=== PATIENT | female | born 1980 | race Caucasian/White ===

== ENCOUNTER → 2022-02-08 | Outpatient (CLI) | payer BC ==
--- NOTE | 2022-02-10 13:53 | MM ---
Reason for Exam: Screening (asymptomatic). Baseline mammogram. Patient History: Menarche at age 13. Patient has no children. Maternal aunt had breast cancer. Risk Values: Nely 5 year model risk: 0.6%. NCI Lifetime model risk: 11.1%. Prior Study Comparison: Patient's first Mammogram. Tissue Density: The breast tissue is heterogeneously dense. This may lower the sensitivity of mammography. Findings: Analyzed By CAD. There is a 15mm round, circumscribed mass in the left breast, deep inferior subareolar position 1-2cm from the nipple. Overall Assessment: Incomplete: need additional imaging evaluation, BI-RAD 0 Management: Diagnostic Breast Ultrasound of the left breast. [facility] will attempt to contact patient to return for supplemental views. A clinical breast exam by your physician is recommended on an annual basis and results should be correlated with mammographic findings. Electronically signed and approved by: Lucio Garcia M.D.
== END | disposition home or self-care (01) ==
LOC: RADMAMWWP 20:24
PROVIDERS: ATTEND Obstetrics & Gynecology
DX: Z12.31 Encounter for screening mammogram for malignant neoplasm of breast (principal); Z80.3 Family history of malignant neoplasm of breast
CPT/HCPCS: 77063; 77067

== ENCOUNTER → 2022-02-16 | Outpatient (CLI) | payer BC ==
--- NOTE | 2022-02-16 08:22 | USB ---
Reason for Exam: Additional evaluation requested from abnormal screening. Patient History: Menarche at age 13. Patient has no children. Maternal aunt had breast cancer. Risk Values: Nely 5 year model risk: 0.6%. NCI Lifetime model risk: 11.1%. Technique: Method: Targeted. Prior Study Comparison: 02/08/2022 Bilateral MG 3D screening mammo w/cad, [facility]. Findings: The periareolar of the left breast, the axilla of the left breast and the retroareolar of the left breast were scanned. The left breast posterior to the nipple demonstrates a 1.2 x 0.6 cm mass which is hypoechoic with circumscribed borders, parallel and demonstrate no posterior acoustic features. No definitive internal calcifications identified. No internal vascularity definitively visualized. Possible duct extends to this area. Overall Assessment: Suspicious, BI-RAD 4 Management: Ultrasound Core Biopsy of the left breast. Findings may represent a dilated duct with internal debris and/or papilloma however other etiologies remain possible. A clinical breast exam by your physician is recommended on an annual basis and results should be correlated with mammographic findings. Electronically signed and approved by: Bryan Weaver DO
== END | disposition home or self-care (01) ==
LOC: RADUSWWP 07:34
PROVIDERS: ATTEND Obstetrics & Gynecology
DX: R92.8 Other abnormal and inconclusive findings on diagnostic imaging of breast (principal); Z80.3 Family history of malignant neoplasm of breast

== ENCOUNTER → 2022-03-09 | Day surgery (SDC) | payer BC ==
--- NOTE | 2022-03-09 10:32 | USB ---
Risk Values: Nely 5 year model risk: 0.6%. NCI Lifetime model risk: 11.1%. Prior Study Comparison: 02/08/2022 Bilateral MG 3D screening mammo w/cad, [facility]. 02/16/2022 Left US breast workup limited LT, [facility]. Pathology Description: Location: retroareolar. Marker Left Behind. Cores: 4 Gauge: 18 Pathology Results: Results pending. Electronically signed and approved by: Bryan Weaver DO
--- NOTE | 2022-03-11 14:35 | MM ---
Reason for Exam: Post Procedure Mammogram. Last screening mammogram was performed less than 1 month ago. Patient History: Menarche at age 13. Patient has no children. Maternal aunt had breast cancer. Risk Values: Nely 5 year model risk: 0.6%. NCI Lifetime model risk: 11.1%. Tissue Density: Left: The breast tissue is heterogeneously dense. This may lower the sensitivity of mammography. Overall Assessment: Benign, BI-RAD 2 Management: Diagnostic Mammogram of the left breast in 6 months. Electronically signed and approved by: Bryan Weaver DO
== END ==
LOC: RADUSWWP 07:25
PROVIDERS: ATTEND Surgery
DX: R92.8 Other abnormal and inconclusive findings on diagnostic imaging of breast (principal); N60.22 Fibroadenosis of left breast; N60.12 Diffuse cystic mastopathy of left breast
CPT/HCPCS: 88305; 77065; 19083; A4648

== ENCOUNTER → 2022-09-26 | Outpatient (CLI) | payer BC ==
--- NOTE | 2022-09-26 08:48 | MM ---
Reason for Exam: Follow-up at short interval from prior study. Last screening mammogram was performed 7 month(s) ago. Patient History: Menarche at age 13. Patient has no children. 03/09/2022, Benign US breast needle core LT on the left side. Maternal aunt had breast cancer. Last menstrual period: 08/26/2022 Risk Values: Nely 5 year model risk: 1.1%. NCI Lifetime model risk: 13.4%. Prior Study Comparison: 02/08/2022 Bilateral MG 3D screening mammo w/cad, [facility]. 03/09/2022 Left MG diagnostic mammo LT wo CAD., [facility]. Tissue Density: Left: The breast tissue is heterogeneously dense. This may lower the sensitivity of mammography. Findings: Analyzed By CAD. Stable 1.4 cm oval circumscribed mass with biopsy clip. No new mass or suspicious group of microcalcifications left breast. Overall Assessment: Benign, BI-RAD 2 Management: Screening Mammogram of both breasts in 5 months. Back on schedule. Results were given to the patient verbally at the time of exam. Electronically signed and approved by: Lucio Garcia M.D.
== END | disposition home or self-care (01) ==
LOC: RADMAMWWP 08:21
PROVIDERS: ATTEND Surgery
DX: R92.8 Other abnormal and inconclusive findings on diagnostic imaging of breast (principal); Z80.3 Family history of malignant neoplasm of breast
CPT/HCPCS: 77061; 77065

== ENCOUNTER → 2024-03-05 | Outpatient (CLI) | payer BC ==
--- NOTE | 2024-03-06 10:19 | MM ---
Reason for Exam: Screening (asymptomatic). Last mammogram was performed 1 year(s) and 1 month(s) ago. Patient History: Menarche at age 13. Patient has no children. 03/09/2022, Benign US breast needle core LT on the left side. Maternal aunt had breast cancer. Paternal aunt had breast cancer. Risk Values: Nely 5 year model risk: 1.2%. NCI Lifetime model risk: 13.2%. Prior Study Comparison: 03/09/2022 Left MG diagnostic mammo LT wo CAD., [facility]. 09/26/2022 Left MG 3D diag mammo w/cad LT, [facility]. 02/28/2023 Bilateral MG 3D screening mammo w/cad, [facility]. Tissue Density: The breasts are almost entirely fatty. Findings: Analyzed By CAD. Left breast biopsy clip. Right breast: There is no suspicious group of microcalcifications or new suspicious mass. Left breast: There is no suspicious group of microcalcifications or new suspicious mass. Overall Assessment: Negative, BI-RAD 1 Management: Screening Mammogram of both breasts in [address] [facility] will attempt to contact patient to return for supplemental views and ultrasound if indicated. Patient should continue monthly self-breast exams. A clinical breast exam by your physician is recommended on an annual basis. This exam should not preclude additional follow-up of suspicious palpable abnormalities. Note on Nely scores and lifetime risk: 1. A Nely score greater than 3% is considered moderate risk. If this is the case, consider specialist referral to assess eligibility for a risk reducing agent. 2. If overall lifetime risk for the development of breast cancer is 20% or higher, the patient may qualify for future screening with alternating mammogram and breast MRI. [facility], , 03/06/2024 10:00 AM. Electronically signed and approved by: Bryan Weaver DO
== END | disposition home or self-care (01) ==
LOC: RADMAMWWP 08:05
PROVIDERS: ATTEND Obstetrics & Gynecology
DX: Z12.31 Encounter for screening mammogram for malignant neoplasm of breast
CPT/HCPCS: 77063; 77067

== ENCOUNTER → 2024-04-20 | Outpatient (CLI) | payer BC ==
[2024-04-20 12:55] LABS: Basophils # (A) 0.06 X 10*3/uL (0.00-0.10); Basophils % (A) 0.7 %; Eosinophils # (A) 0.12 X 10*3/uL (0.04-0.35); Eosinophils % (A) 1.3 %; HCT 44.2 % (37.2-46.3); HGB 14.5 g/dL (12.0-15.0); Lymphocytes # (A) 2.39 X 10*3/uL (0.90-5.00); Lymphocytes % (A) 26.6 %; MCH 30.8 pg (27.0-32.0); MCHC 32.8 g/dL (32.0-37.0); MCV 93.8 FL (80.0-97.0); Mean Platelet Volume 12.1 FL (9.5-12.2); Monocytes # (A) 0.58 X 10*3/uL (0.20-1.00); Monocytes % (A) 6.5 %; NRBC Per 100 WBC 0 X 10*3/uL (0.00-0.01); Neutrophils % (A) 64.6 %; Platelet Count 301 X 10*3/uL (140-440); RBC 4.71 X 10*6/uL (4.10-5.20); RDW 12.8 % (11.5-14.5); WBC 8.98 X 10*3/uL (4.50-10.00)
[2024-04-20 13:07] LABS: Blood Urea Nitrogen 13.1 mg/dL (9.0-27.0); Carbon Dioxide 22.8 mmol/L (21.6-31.8); Chloride 104 mmol/L (96-109); Glucose 113 mg/dL (70-110); Potassium 4.5 mmol/L (3.5-5.5); Sodium 139 mmol/L (135-145)
== END | disposition home or self-care (01) ==
LOC: LABPAT 08:20
PROVIDERS: ATTEND Obstetrics & Gynecology
DX: Z01.812 Encounter for preprocedural laboratory examination (principal); D25.9 Leiomyoma of uterus, unspecified
CPT/HCPCS: 80051; 82565; 82947; 84520; 85025; 86850; 86900; 86901; 87086

== ENCOUNTER 2024-04-29 05:41 | Day surgery (SDC) | payer BC ==
[2024-04-29] MEDS ORDERED: droPERidol 5 MG/2 ML VIAL IVP ONE (05:54)
[2024-04-29] MEDS ORDERED: LIDOCAINE 1% (10MG/ML) FOR IV START INTRADERMA PRN (05:54)
[2024-04-29] MEDS: IV FLUID CONTINUATION 1,000 ML IV ONE (06:34)
[2024-04-29] MEDS: LACTATED RINGERS 1,000 ML IV SCH ×2 (06:55→12:49)
[2024-04-29] MEDS ORDERED: HYDROmorphone 0.5 MG/0.5 ML SYRINGE IVP PRN (07:00)
[2024-04-29] MEDS: ONDANSETRON 4 MG/2 ML VIAL IVP ONE (07:03)
[2024-04-29] MEDS: DEXAMETHASONE SOD PHOSPHATE 4 MG/ML 1 ML VIAL IV ONE (07:03)
[2024-04-29] MEDS: MORPHINE SULFATE (PF) 1 MG/ML AMP INTRATHECA ONE (07:12)
[2024-04-29] MEDS: MIDAZOLAM 2 MG/2 ML VIAL IV ONE (07:22)
[2024-04-29] MEDS ORDERED: NEOSTIGMINE 1 MG/ML 10 ML VIAL ONE (07:24)
[2024-04-29] MEDS ORDERED: PROPOFOL 10 MG/ML 20 ML VIAL IV ONE (07:24)
[2024-04-29] MEDS ORDERED: HYDROmorphone (PF) 1 MG/ML ONE (07:24)
[2024-04-29] MEDS ORDERED: ACETAMINOPHEN IV (For NPO) 1,000 MG/100 ML VIAL ONE (07:24)
[2024-04-29] MEDS ORDERED: KETOROLAC 15 MG/ML 1 ML VIAL ONE (07:24)
[2024-04-29] MEDS ORDERED: diphenhydrAMINE 50 MG/ML 1 ML VIAL ONE (07:24)
[2024-04-29] MEDS ORDERED: SUCCINYLCHOLINE CHLORIDE 200 MG/10 ML VIAL IV ONE (07:24)
[2024-04-29] MEDS ORDERED: LIDOCAINE 1% INJ 10MG/ML (20 ML MDV) ONE (07:24)
[2024-04-29] MEDS ORDERED: GLYCOPYRROLATE 0.2 MG/ML 2 ML VIAL ONE (07:24)
[2024-04-29] MEDS ORDERED: MIDAZOLAM 2 MG/2 ML VIAL ONE (07:24)
[2024-04-29] MEDS ORDERED: fentaNYL (PF) 50 MCG/ML 2 ML AMP ONE (07:24)
[2024-04-29] MEDS ORDERED: ROCURONIUM 10 MG/ML (5 ML VIAL) IV ONE (07:24)
--- NOTE | 2024-04-29 07:33 | P.ANPRN ---
Procedure Note - Anesthesia - Epidural/Spinal Spinal Time Out Performed: Yes Date of Procedure: 04/29/24 Procedure Start Time: 07:12 Procedure Stop Time: 07:17 Location of Patient: PreOp Indication: Acute Post-Operative Pain, Analgesia, Requested by Surgeon Sedation Type: Sedate with meaningful contact maintained Preparation: Sterile Prep Position: Sitting Catheter: None Needle Guage: 25 Narrative: Duramorph 0.3mg intrathecally. AttemptX1 Blood Aspirated: No Pain Paresthesia on Injection Noted: No Events: Uneventful and Well Tolerated
[2024-04-29] MEDS: BUPIVACAINE (PF) 0.25% 30 ML VIAL SQ ONE ×2 (08:06→10:05)
[2024-04-29] MEDS: LACTATED RINGERS 1,000 ML IV ONE (08:08)
[2024-04-29] MEDS ORDERED: KETOROLAC 15 MG/ML 1 ML VIAL IVP PRN (10:09)
[2024-04-29] MEDS ORDERED: METOCLOPRAMIDE 5 MG/ML 2 ML VIAL IVP PRN (10:09)
[2024-04-29] MEDS ORDERED: SIMETHICONE 80 MG CHEWABLE PO PRN (10:09)
[2024-04-29] MEDS ORDERED: ONDANSETRON 4 MG/2 ML VIAL IVP PRN (10:09)
--- NOTE | 2024-04-29 10:25 | P.OP ---
Date of Procedure: 04/29/24 Preoperative Diagnosis: #1. Symptomatic enlarged fibroid uterus Postoperative Diagnosis: Same Procedure(s) Performed: #1. Da Erlin robotically assisted laparoscopic hysterectomy with bilateral salpingectomy #2. Cystotomy repair (Rahbar) #3. Diagnostic cystoscopy Anesthesia: TIM Surgeon: Earnest Bee Engineering Group Leader #1: [place] Lo Estimated Blood Loss (ml): 50 IV fluids (ml): 1,200 Urine output (ml): 200 Pathology: other (Uterus and bilateral fallopian tubes) Condition: stable Disposition: PACU Operative Findings: Preoperative pelvic examination confirmed an enlarged 12 to 14-week irregular uterus. Intraoperatively the uterus was noted to be quite irregular with multiple fibroids of varying sizes distorting the anatomy of the uterus as well as its vascular flow. Secondary to the rotation of the uterus the bladder was ultimately noted to be significantly high on the patient's left side which unfortunately led to an incidental cystotomy during the case which was subsequently repaired. The ovaries were entirely normal bilaterally. Using the cystoscope, the dome of the bladder was noted to have an intact repair which was also tested following repair intraoperatively by backfilling the bladder with sterile water and no leaking noted. The bilateral ureters were noted to be peristalsing following the procedure. Description of Procedure: The patient was prepped and draped in the usual fashion after general tracheal anesthesia was administered by the anesthesiologist. A speculum was placed and the anterior lip of the cervix grasped with a single-tooth tenaculum. Uterus sounded to approximately 14 cm. Serial dilation was carried out to admit the Vcare uterine manipulator which was affixed to the cervix in standard fashion. A Yi catheter was placed at which time clear deniz urine was noted. Attention was turned to the abdomen where a site was selected approximately 3 cm above the umbilicus in the midline where an 8 mm incision was made in the transverse plane allowing insertion of an 8 mm optical da Erlin port under direct visualization without difficulty. A pneumoperitoneum was infused and 25 degrees of Trendelenburg positioning employed. A site was selected in the right lower quadrant approximately 4 to 5 cm below the optical port and 10 to 12 cm lateral to the umbilicus where an 8 mm incision was made in the transverse plane along insertion of an 8 mm da Erlin port under direct visualization without difficulty. A mirroring incision and port were placed in the left lower quadrant. A site was selected above the optical port and bisecting the distance between the left lower quadrant port and the optical port in the left upper quadrant where a 10 mm incision was made in the transverse plane along insertion of the 10 mm certified surgical tech/first assistant port under direct visualization without difficulty. The robot was docked to the patient in the left arm loaded with a [place] bipolar cautery forceps while the right arm was loaded with a monopolar cautery scissors. The anatomy was noted to be difficult as above. The left fallopian tube was elevated and removed from the underlying tissues with cautery and the monopolar cautery scissors. It was then divided from the patient as it was otherwise in the way. The utero-ovarian ligament and round ligament were thoroughly cauterized with the [place] bipolar cautery forceps and then cut with the monopolar scissors. Once through the round ligament, the bladder peritoneum was started though the anatomy was somewhat distorted secondary to a large left fundal fibroid. In the process of creating the bladder flap and dissecting down along the blood vessels of the uterus, there was noted to be a roughly half centimeter to 1 cm opening which after exploration was noted to be into the bladder. Consultation with urology was called at which time they recommended we proceed with the remainder of the hysterectomy and he would return to repair the cystotomy post hysterectomy. The blood vessels were further secured on the left side. Rotation of the uterus allowed the right fallopian tube to be removed from the patient in similar fashion to the left. The utero-ovarian ligament and round ligament were then cauterized and cut as well. The uterine vasculature was skeletonized and ultimately cauterized with the [place] bipolar cautery forceps then cut. The bladder peritoneum was developed from the side to the other side at which time the anatomy became more apparent on the left side. The bladder was reflected distally across the entire anterior portion of the uterus and the vaginal cup was clearly visible. Attention was returned to the left side where the bladder peritoneum was further developed and the bladder swept distally. The incidental cystotomy appeared to be in the dome of the bladder on the slightly posterior side but significantly away from the ureteral insertion. Once the vaginal cup was clear throughout. The vagina was packed with a laparotomy sponge and the cervix divided from the vagina along the margin of the vaginal cup sharply with the monopolar and bipolar cautery scissors. The uterus was removed circumferentially until it was free. After some manipulation, the very large uterus was ultimately able to be delivered through the vagina intact. The vagina was then packed with a sponge again and the pneumoperitoneum reestablished. Hemostasis appeared to be excellent. The vaginal cuff was closed with a running stitch of 0 V-Loc from margin to margin with 2 stitches trace backward at the left margin. At the time of starting closure of the vaginal cuff, urology was called and presented shortly after closure of the cuff. He then proceeded to close the cystotomy in 2 layers, both being a running stitch of 3-0 STRATAFIX with the second layer imbricating the previous layer. The repair was tested for water tightness by filling the bladder with approximately 150 mL of sterile water and there was no extravasation of fluid from the laparoscopic side. Urology requested that a DAVIN drain remain in place and it was passed through the left lower quadrant da Erlin port and laid into the cul-de-sac. The robot was then undocked and the ports removed. I then remove the Yi catheter and placed a diagnostic cystoscope, distended the bladder with sterile water. The repair was noted to be at the dome of the bladder on the left side and appeared to be intact. The bilateral ureteral Helex were noted and were both seen to peristalsis. All instrumentation was then removed and the Yi catheter was replaced. The abdominal incisions were closed with interrupted subcuticular stitches of 4-0 Vicryl followed by half-inch Steri-Strips placed with Mastisol. The 4 incisions were then infused with a total of 10 mL of quarter percent Marcaine without epinephrine, equally divided between the 4 ports. All sponge, instrument, and needle counts were correct. Estimated blood loss for the case was approximately 50 mL or less. The only complication was the incidental cystotomy repaired intraoperatively by urology. The patient tolerated the procedure well and proceeded to the recovery room in stable condition.
[2024-04-29] MEDS ORDERED: NALOXONE 0.4 MG/ML 1 ML VIAL IV PRN (12:07)
[2024-04-29] MEDS: diphenhydrAMINE 50 MG/ML 1 ML VIAL IVP PRN (12:45)
--- NOTE | 2024-04-29 15:52 | P.GSCN ---
History of Present Illness Consult date: 04/29/24 Reason for Consult: Bladder injury History of present illness: This is a 44-year-old female that is undergoing a robotic hysterectomy with Dr. Bee for a fibroid, intraoperatively was noted there was a bladder injury subsequently urology was consulted. On review of chart no previous known urological history. Of note patient was undergoing surgery at time of IntraOp evaluation thus a complete history could not be obtained Past Medical History Past Medical History: No Reported History Additional Past Medical History / Comment(s): UTERINE FIBROIDS History of Any Multi-Drug Resistant Organisms: None Reported Past Surgical History: Orthopedic Surgery Additional Past Surgical History / Comment(s): left wrist surgery as a child Past Anesthesia/Blood Transfusion Reactions: No Reported Reaction Smoking Status: Current every day smoker - Past Family History Father Family Medical History: Myocardial Infarction ([place]) Mother Family Medical History: Hypertension Medications and Allergies Home Medications Medication Instructions Recorded Confirmed Type norethindrone-e.estradioL-iron 1 each PO DAILY 04/22/24 04/22/24 History [Junel Fe 1.5 mg-30 Mcg Tablet] Allergies Allergy/AdvReac Type Severity Reaction Status Date / Time No Known Allergies Allergy Verified 04/22/24 14:23 Surgical - Exam Vital Signs Temp Pulse Resp BP Pulse Ox 98.0 F 78 18 133/76 98 04/29/24 06:33 04/29/24 06:33 04/29/24 06:33 04/29/24 06:33 04/29/24 06:33 Assessment and Plan Assessment: 44-year-old female with intraoperative bladder injury urology was consulted for. -Defect was repaired robotically, please see op note for details
[2024-04-30] MEDS: IBUPROFEN 600 MG TAB PO PRN (00:02)
[2024-04-30] MEDS: SENNOSIDES-DOCUSATE SODIUM 1 EACH TAB PO SCH (01:56)
[2024-04-30] MEDS: ACETAMINOPHEN TAB 325 MG TAB PO PRN (04:38)
[2024-04-30 04:47] VITALS: TEMP 98.7
[2024-04-30 05:55] LABS: Basophils % (A) 0 %; Eosinophils # (A) 0.2 k/uL (0-0.7); Eosinophils % (A) 1 %; HCT 37.9 % (34.0-46.0); HGB 12.3 gm/dL (11.4-16.0); Lymphocytes # (A) 3.4 k/uL (1.0-4.8); Lymphocytes % (A) 26 %; MCH 31.1 pg (25.0-35.0); MCHC 32.6 g/dL (31.0-37.0); MCV 95.3 fL (80.0-100.0); Mean Platelet Volume 9.3; Monocytes # (A) 0.6 k/uL (0-1.0); Monocytes % (A) 5 %; Neutrophils % (A) 67 %; Platelet Count 190 k/uL (150-450); RBC 3.98 m/uL (3.80-5.40); RDW 12.8 % (11.5-15.5); WBC 13.4 k/uL (3.8-10.6)
--- NOTE | 2024-04-30 07:24 | P.PN ---
Progress Note - Text Progress Note Date: 04/30/24 (574) Anesthesia Postop day 1 Subjective: Status Post vaginal hysterectomy with Duramorph. Patient seen and examined. Doing well without complaint. VAS 2 out of 10. No nausea or vomiting. Mild pruritus tolerable.. Denies fever. Gross lower extremity strength intact. Without apparent anesthetic complications. Objective: Vital signs reviewed Heart: Regular Rate Lungs: Good chest excursion Abdomen: Appears nondistended Assessment: Status post vaginal hysterectomy with Duramorph postop day 1 Plan: 1. Continue current care with your medical management. Anticipated end to the duration of the Duramorph around surgery time today. You may see increased pain needs around this time. 2. This note was dictated using [employer] software. Please be advised there is a potential for misspellings or errors in portfolio administrator.
--- NOTE | 2024-04-30 08:45 | P.PN ---
Progress Note - Text Progress Note Date: 04/30/24 Underwent bladder repair yesterday, minimal output from the DAVIN this morning. Urine is clear. -DAVIN drain can be removed today -From urology standpoint she can be discharged home with a Yi catheter, she is set up for a cystogram on May 06
--- NOTE | 2024-04-30 08:50 | P.DS ---
Providers Expected date of discharge: 04/30/24 Attending physician: Earnest Bee Consults: 04/29/24 10:25 Consult Physician Routine Consulting Provider: Ravi Fitzgerald Consult Reason/Comments: Intraoperative cystotomy repair Do you want consulting provider notified?: Already Contacted Primary care physician: Stated None - Discharge Diagnosis(es) (1) Fibroid uterus Current Visit: Yes Status: Acute Hospital Course: The patient is a 44-year-old woman who has had a known large and irregular fibroid uterus over the last number of years and has finally come to the point where it has become symptomatic enough to request removal. We discussed options for removal and have opted to proceed with da Erlin robotic hysterectomy. She was taken to the operating room where she underwent da Erlin robotically assisted laparoscopic hysterectomy with bilateral salpingectomy. Intraoperatively the uterus was noted to be extraordinarily irregular distorting the anatomy and, in the process of securing the left uterine vessels and creating the bladder flap, there was an incidental cystotomy. Urology was consulted and presented after completion of the hysterectomy to perform robotic repair of cystotomy which was undertaken in an uncomplicated fashion. A DAVIN drain was left in place per urology. At the end of the procedure, diagnostic cystoscopy demonstrated bilateral ureteral jets and the cystotomy repair was intact. The patient's postoperative course was unremarkable with vital signs remaining stable and her temperature was afebrile throughout. She was tolerating regular diet by the evening of day of surgery. She was deemed stable for discharge on postoperative day #1. The DAVIN drain was removed without difficulty and discarded. She was to follow-up with urology in 1 week for retrograde cystogram and removal of Yi catheter assuming no leak was noted. She was to follow-up with me at 2 weeks if necessary but primarily at 8 weeks routinely. Discharge instructions included calling for any significantly increased fever, abdominal pain, GI or bladder concerns, incisional complaints, or anything else that concerned her. She was additionally instructed to have nothing in the vagina for at least 8 weeks time to include intercourse. She understood her instructions and agrees to follow-up as noted above. Discharge medications included any normal home medications as well as [id number] analgesic pain medications. She was provided a prescription for oxycodone 5 mg, 1-2 p.o. every 6 hours as needed pain, #20 dispensed with no refills. Discharge hemoglobin and hematocrit was 12.3 and 37.9 respectively. Procedures: #1. Da Erlin robotically assisted laparoscopic hysterectomy with bilateral salpingectomy #2. Intraoperative cystotomy repair #3. Diagnostic cystoscopy Patient Condition at Discharge: Stable Plan - Discharge Summary Discharge Rx Participant: No New Discharge Prescriptions: New Cephalexin [Keflex] 500 mg PO Q12HR 10 Days #20 cap No Action norethindrone-e.estradioL-iron [Junel Fe 1.5 mg-30 Mcg Tablet] 1 each PO DAILY Discharge Medication List norethindrone-e.estradioL-iron [Junel Fe 1.5 mg-30 Mcg Tablet] 1 each PO DAILY 04/22/24 [History] Cephalexin [Keflex] 500 mg PO Q12HR 10 Days #20 cap 04/30/24 [Rx] Follow up Appointment(s)/Referral(s): Ravi Fitzgerald MD [STAFF PHYSICIAN] - 05/06/24 10:00 am Earnest Bee MD [STAFF PHYSICIAN] - 2 Weeks Activity/Diet/Wound Care/Special Instructions: It is normal to have blood in the urine Increase your fluid intake Your follow-up for your x-ray would be at the hospital at 9 AM Discharge Disposition: HOME SELF-CARE
--- NOTE | 2024-04-30 08:52 | P.OP ---
Date of Procedure: 04/29/24 Preoperative Diagnosis: Bladder injury Postoperative Diagnosis: Same Procedure(s) Performed: Robotic cystotomy repair Implants: None Anesthesia: TIM Surgeon: Ravi Fitzgerald Estimated Blood Loss (ml): 5 Pathology: none sent Condition: stable Disposition: PACU Indications for Procedure: This is a 44-year-old female that was undergoing a robotic hysterectomy for a fibroid uterus. Intraoperatively it was noticed was a cystotomy subsequently urology was called for repair of the cystotomy. Operative Findings: 1 cm cystotomy along the left posterior dome, repaired in 2 layers robotically Description of Procedure: After the completion of the hysterectomy, the bladder injury was evaluated, the defect measured approximately 1 cm. I was able to visualize the left ureteral orifice and there was clear urine seen effluxing from it. At this point the bladder mucosa was evaluated and it was viable. The defect was closed in 2 layers using 3-0 V-Loc initial layer was to repair the mucosa and the second layer was to imbricate the detrusor muscle over the mucosal repair. The repair was away from the ureteral orifice. The repair was tested using 150 mL, there was no evidence of any leaks. Of note the repair was away from the vagina and peritoneal fat was in between the repair and the vagina. At this point a DAVIN drain was placed through the left quadrant incision. Cystoscopy was performed by Dr. Bee and I did observe bilateral clear efflux from both ureteral orifice ease, and on cystoscopy there was no evidence of any leak at the site of the repair and the repair was evaluated. At this point an 18 Bulgarian Yi was placed. Patient tolerated procedure well and at this point Dr. Bee completed his portion of the case
[2024-04-30 09:08] VITALS: BP 114/76; PULSE 66; RESP 16
== END 2024-04-30 10:32 | disposition home or self-care (01) ==
LOC: OR 05:41 → 4FBP 10:15 → OR 04-30 10:32
PROVIDERS: ATTEND Obstetrics & Gynecology
DX: D25.1 Intramural leiomyoma of uterus (principal); N72 Inflammatory disease of cervix uteri; N80.03 Adenomyosis of the uterus; N88.8 Other specified noninflammatory disorders of cervix uteri; G89.18 Other acute postprocedural pain; F17.210 Nicotine dependence, cigarettes, uncomplicated; Z98.890 Other specified postprocedural states
CPT/HCPCS: 58571; S2900; 81025; 85025; 88307

== ENCOUNTER → 2024-05-06 | Outpatient (CLI) | payer BC ==
--- NOTE | 2024-05-06 10:03 | FL ---
EXAMINATION TYPE: FL voiding cystourethrogram DATE OF EXAM: 05/06/2024 9:58 AM COMPARISON: 05/06/2024 CLINICAL INDICATION:Female, 44 years old with history of S37.20XA UNSPECIFIED INJURY OF BLADDER; , PH H TECHNIQUE: The study was explained to the patient and history was elicited. Prior to initiation of t he study a escort car driver radiograph of the abdomen and pelvis was obtained. [A urinary bladder catheter was p laced under sterile technique by the department of radiology and 300 ccs of Cystografin were instille d via the urinary catheter under intermittent spot fluoroscopy. Fluoroscopy time 57 seconds. Fluoroscopy images:0 Radiographs images:11 DAP: Not reported mGycm2 FINDINGS: The escort car driver fluoroscopic image of the pelvis demonstrated no acute intrapelvic or intra-abdominal patho logy. After the urinary bladder was completely distended, oblique, lateral and frontal radiographs we re obtained. The bladder wall demonstrates a subtle contour deformity to the posterior bladder witho ut extravasation. The remainder of the bladder had a smooth contour without evidence of focal abnorma l outpouching, extrinsic impression or contrast extravasation. There was no visualized evidence of v esiculo-ureteral reflux. No post void residual contrast visualized. There is no evidence of extrava sation of contrast outside the bladder lumen visualized on the post void fluoroscopic images. IMPRESSION: Subtle contour deformity to the posterior bladder without evidence of extravasation. [facility], , 05/06/2024 10:01 AM
== END | disposition home or self-care (01) ==
LOC: RADFLMAIN 08:50
PROVIDERS: ATTEND Urology
DX: S37.20XA Unspecified injury of bladder, initial encounter (principal); N32.89 Other specified disorders of bladder
CPT/HCPCS: 74455; Q9958